=== PATIENT | female | born 1990 | race Caucasian/White ===

== ENCOUNTER 2024-12-15 12:21 | Emergency (ER) | payer OTHER ==
[2024-12-15 13:22] LABS: #Basophils 0.04 10x3/uL (0.0-0.2); #Eosinophils 0.23 10x3/uL (0.0-0.5); #Monocytes 0.57 10x3/uL (0.0-1.1); #Neutrophils 3.17 10x3/uL (1.5-8.4); %Basophils 0.7 % (0.0-2.0); %Eosinophils 4.0 % (0.0-6.0); %Lymphocytes 30.8 % (18.0-47.0); %Monocytes 9.8 % (0.0-10.0); %Neutrophils 54.4 % (40.0-75.0); Hematocrit 40.5 % (34.9-44.5); Hemoglobin 14.0 g/dL (12.0-15.5); Mean Corpuscular Hemoglobin 30.3 pg (27.0-33.0); Mean Corpuscular Volume 87.7 fL (81.6-98.3); Platelet Count 257 10x3/uL (150-450); Red Blood Cell (RBC) Count 4.62 10x6/uL (3.90-5.03); White Blood Cell (WBC) Count 5.82 10x3/uL (3.5-10.5)
[2024-12-15] MEDS ORDERED: Ondansetron PF 4 MG/2 ML Vial ONE (13:29)
[2024-12-15 13:38] LABS: ALT (SGPT) 25 U/L (Less than 34); AST (SGOT) 24 U/L (11-34); Albumin 4.3 g/dL (3.1-4.5); Alkaline Phosphatase 62 U/L (40-110); Anion Gap 15 mmol/L (10-20); BUN (Urea Nitrogen) 14 mg/dL (7.0-18.7); Bilirubin, Total 0.8 mg/dL (0.3-1.2); Calc. Creatinine Clearance 0 mL/min (70-130); Calcium 8.9 mg/dL (7.8-10.44); Carbon Dioxide 23 mmol/L (22-29); Chloride 107 mmol/L (98-107); Globulin 3.0 g/dL (2.4-3.5); Glucose 101 mg/dL (70-105); Potassium 4.1 mmol/L (3.5-5.1); Sodium 141 mmol/L (136-145)
[2024-12-15 13:40] LABS: Troponin I Less than 0.010 ng/mL (< 0.028)
== END 2024-12-15 14:27 | disposition home or self-care (01) ==
LOC: CSHERS 12:21
DX: R42 Dizziness and giddiness (principal); R09.81 Nasal congestion
CPT/HCPCS: 36415; 80053; 84484; 85025; 93005; 96374; J2405